=== PATIENT | female | born 1980 | race Caucasian/White ===

== ENCOUNTER 2017-07-23 19:22 | Emergency (ER) | payer OTHER ==
--- NOTE | 2017-07-23 19:34 | PDOC ---
Rapid Medical Evaluation Medical Evaluation: 07/23/17 19:29 I have performed a brief in-person evaluation of this patient. The patient presents with a chief complaint of: throat pain, cough, sneezing x 1 week, 5 days back pain, urinary discomfort, LMP 06/04 Pertinent physical exam findings: n/a I have ordered the following: UA, UCx, Upreg, strep The patient will proceed to the ED for further evaluation. Discharge Disposition - Diagnosis Throat pain - Referrals - Patient Instructions - Post Discharge Activity
[2017-07-23 19:55] VITALS: BP 99/66; PULSE 85; TEMP 98.4; BMI 24.7
--- NOTE | 2017-07-23 20:17 | PDOC ---
History of Present Illness - General Chief Complaint: Sore Throat Stated Complaint: FATIGUE Time Seen by Provider: 07/23/17 19:35 History Source: Patient Exam Limitations: No Limitations - History of Present Illness Initial Comments: 07/23/17 20:00 36-year-old female complaints of frequent urination along with mild dysuria. Patient also complaining of left lower back pain and sore throat for the past day. Patient denies fever, chills, nausea, abdominal pain recent illness, recent travel. Patient denies change in appetite, cough headache, dizziness. Timing/Duration: getting worse Severity: mild Associated Symptoms: reports: other Past History - Travel Traveled outside of the country in the last 30 days: No - Past Medical History Allergies/Adverse Reactions: Allergies Allergy/AdvReac Type Severity Reaction Status Date / Time No Known Allergies Allergy Verified 07/23/17 19:37 Home Medications: Ambulatory Orders NK [No Known Home Medication] 07/23/17 COPD: No - Suicide/Smoking/Psychosocial Hx Smoking History: Never smoked Have you smoked in the past 12 months: No Information on smoking cessation initiated: No Hx Alcohol Use: No Drug/Substance Use Hx: No Substance Use Type: None Patient Lives Alone: No Lives with/in: spouse/SO Review of Systems - Review of Systems Able to Perform ROS?: Yes Constitutional: No: Symptoms Reported HEENTM: Yes: Throat Pain Respiratory: No: Symptoms reported ABD/GI: No: Symptoms Reported : Yes: Dysuria, Frequency Musculoskeletal: Yes: Back Pain (left lower) Neurological: No: Symptoms reported Endocrine: No: Symptoms Reported Hematologic/Lymphatic: No: Symptoms Reported *Physical Exam - Vital Signs Last Vital Signs Temp Pulse Resp BP Pulse Ox 98.4 F 85 18 99/66 97 07/23/17 19:33 07/23/17 19:33 07/23/17 19:33 07/23/17 19:33 07/23/17 19:33 - Physical Exam General Appearance: Yes: Nourished, Appropriately Dressed. No: Apparent Distress HEENT: positive: EOMI, MAYCO, TMs Normal, Pharyngeal Erythema (soft palate), Tonsillar Erythema (2+ bilateral). negative: Tonsillar Exudate Neck: positive: Supple. negative: Lymphadenopathy (R), Lymphadenopathy (L) Respiratory/Chest: positive: Lungs Clear, Normal Breath Sounds. negative: Respiratory Distress, Accessory Muscle Use Cardiovascular: positive: Regular Rhythm, Regular Rate. negative: Murmur Gastrointestinal/Abdominal: positive: Soft. negative: Tenderness Musculoskeletal: negative: CVA Tenderness (L) Extremity: positive: Normal Capillary Refill Integumentary: positive: Normal Color, Warm, Moist Medical Decision Making - Medical Decision Making 07/23/17 20:16 Patient with a sore throat, dysuria, frequency and left lower back pain. Patient ordered for rapid strep, urinalysis urine culture and urine . 07/23/17 20:54 Rapid strep testing negative. Urine negative. Patient will be sent home with recommendations to take Motrin for discomfort. toradol im ordered here Laboratory Tests 07/23/17 20:00 Urine HCG, Qual Negative 07/23/17 20:56 *DC/Admit/Observation/Transfer Diagnosis at time of Disposition: Throat pain, Low back pain - Discharge Dispostion Disposition: HOME Condition at time of disposition: Good - Referrals - Patient Instructions Printed Discharge Instructions: DI for Low Back Pain Additional Instructions: I recommend take Motrin 600 mg every 6-8 hours for discomfort. Drink plenty of water and follow-up with your doctor as needed - Post Discharge Activity
[2017-07-23 20:38] LABS: URINE APPEARANCE CLEAR; URINE BILIRUBIN NEGATIVE (NEGATIVE); URINE BLOOD NEGATIVE (NEGATIVE); URINE COLOR LTYELLOW; URINE GLUCOSE (UA) NEGATIVE (NEGATIVE); URINE KETONE NEGATIVE (NEGATIVE); URINE LEUK ESTERASE NEGATIVE (NEGATIVE); URINE NITRITE NEGATIVE (NEGATIVE); URINE PROTEIN NEGATIVE (NEGATIVE); URINE UROBILINOGEN NEGATIVE mg/dL (0.2-1.0)
[2017-07-23] MEDS ORDERED: KETOROLAC TROMETHAMINE 60 MG/2 ML VIAL IM ONE (20:55)
[2017-07-23] MEDS ORDERED: KETOROLAC TROMETHAMINE 60 MG/2 ML VIAL ONE (20:57)
[2017-07-23 22:32] LABS: URINE LEUK ESTERASE Negative (NEGATIVE)
== END 2017-07-23 21:03 | disposition home or self-care (01) ==
LOC: JERFT 19:22
PROC: 3E0233Z Introduction of Anti-inflammatory into Muscle, Percutaneous Approach (ICD-10-PCS; principal; 2017-07-23)
DX: J02.9 Acute pharyngitis, unspecified (principal); M54.5 Low back pain
CPT/HCPCS: 81003; 84703; 87070; 87086; 87430; 99281-25